=== PATIENT | female | born 1965 | race Hispanic/Latino ===

== ENCOUNTER 2017-09-26 11:39 | Day surgery (SDC) | payer BC ==
[2017-09-20 13:41] VITALS: BMI 42.9
[2017-09-26] MEDS ORDERED: Propofol 10 mg/ml Inj (20 ML) ONE ×3 (14:16→14:59)
[2017-09-26] MEDS ORDERED: Midazolam 2 MG/2 ML VIAL ONE (14:58)
[2017-09-26] MEDS ORDERED: Sodium Chloride 0.9% 1,000 ML IV SCH (15:45)
[2017-09-26 16:44] VITALS: RESP 18; TEMP 97.8
[2017-09-26 16:59] VITALS: PULSE 63
[2017-09-26 18:12] VITALS: BP 137/88; O2SAT 98
== END 2017-09-26 18:00 | disposition home or self-care (01) ==
LOC: ENDO 11:39
PROVIDERS: ATTEND Internal Medicine Gastroenterology
DX: D12.3 Benign neoplasm of transverse colon (principal); K64.8 Other hemorrhoids; Z80.0 Family history of malignant neoplasm of digestive organs; Z87.891 Personal history of nicotine dependence
CPT/HCPCS: 45381; 45385; 88305; J2001; J2250; J2704; J3010; J7040 ×2

== ENCOUNTER 2018-02-26 18:47 | Emergency (ER) | payer BC ==
[2018-02-26] MEDS ORDERED: Sodium Chloride 0.9% 1,000 ML IV STA (19:02)
--- NOTE | 2018-02-26 19:05 | ED PDOC ---
Arrival/HPI - General Time Seen by Provider: 02/26/18 18:52 Historian: Patient - History of Present Illness Narrative History of Present Illness (Text): 52 y/o F c no PMHx p/w chest pain x 1 hour. Pain began under R breast radiating across to L side, sharp, severe, associated with NBNB vomiting x 1. Pain resolved after vomiting for 5 minutes, then recurred, now lower midsternal, radiating to L shoulder. Patient denies fever, chills, cough, diaphoresis, dizziness, shortness of breath. Time/Duration: 1 hour Past Medical History - Provider Review Nursing Documentation Reviewed: Yes - Cardiac Hx Pacemaker: No - Neurological Hx Paralysis: No - Hematological/Oncological Hx Blood Transfusions: No Hx Blood Transfusion Reaction: No - Musculoskeletal/Rheumatological Hx Musculoskeletal Disorders: No - Psychiatric Hx Emotional Abuse: No Hx Physical Abuse: No Hx Substance Use: No - Anesthesia Hx Anesthesia Reactions: No Hx Malignant Hyperthermia: No - Suicidal Assessment Feels Threatened In Home Enviroment: No Family/Social History - Physician Review Nursing Documentation Reviewed: Yes Family/Social History: No Known Family HX Hx Alcohol Use: No Hx Substance Use: No Allergies/Home Meds Allergies/Adverse Reactions: Allergies No Known Allergies Allergy (Verified 09/20/17 13:38) Review of Systems - Physician Review All systems were reviewed & negative as marked: Yes - Review of Systems Constitutional: absent: Fevers Respiratory: absent: SOB Physical Exam - Physical Exam Narrative Physical Exam (Text): Gen: NAD Head: NC/AT Eyes: PERRL ENT: MMM Neck: Supple Chest: No tenderness CV: Regular rate Lungs: CTA b/l Abd: Soft, RUQ/epigastric tenderness Back: No CVA tenderness Extremities: No edema or tenderness Skin: No rash Neuro: Alert, no focal deficit Vital Signs Temp Pulse Resp BP Pulse Ox 02/26/18 19:30 98.6 F 79 18 142/84 99 Medical Decision Making ED Course and Treatment: EKG NSR 80 bpm, no ST/T wave changes. CXR no acute disease. HEART score low. Mild transaminitis, US shows gallstones without CBD dilitation or positive chiu's sign or gall bladder wall thickening. Patient discharged home, johnathan f/u with Rosa Elena, instructed to return to ED for worsening pain, fever, vomiting, yellowing skin/eyes. - Lab Interpretations Lab Results: 02/26/18 19:41 02/26/18 19:41 Lab Results 02/26/18 19:41: Sodium 141, Potassium 4.5, Chloride 105, Carbon Dioxide 28, Anion Gap 13, BUN 24 H, Creatinine 1.0, Est GFR ( Amer) > 60, Est GFR ( Non-Af Amer) 58, Random Glucose 101, Calcium 9.2, Total Bilirubin 0.3, AST 100 H , ALT 58 H, Alkaline Phosphatase 93, Total Creatine Kinase 145, Troponin I < 0.01, Total Protein 7.9, Albumin 4.4, Globulin 3.5, Albumin/Globulin Ratio 1.3, Lipase 148 02/26/18 19:41: WBC 6.0, RBC 4.79, Hgb 13.7, Hct 41.4, MCV 86.4, MCH 28.6, MCHC 33.1, RDW 14.0, Plt Count 316, MPV 10.1, Gran % 65.9, Lymph % (Auto) 20.2 L, [place] % (Auto) 6.9 H, Eos % (Auto) 6.7 H, Baso % (Auto) 0.3, Gran # 3.92, Lymph # (Auto) 1.2, [place] # (Auto) 0.4, Eos # (Auto) 0.4, Baso # (Auto) 0.02 - RAD Interpretation Radiology Orders: 02/26/18 19:02 CHEST PORTABLE [RAD] Stat ABDOMEN COMPLETE [US] Stat - Medication Orders Current Medication Orders: Discontinued Medications Sodium Chloride (Sodium Chloride 0.9%) 1,000 mls @ 999 mls/hr IV .Q1H1M STA Stop: 02/26/18 20:02 Last Admin: 02/26/18 19:34 Dose: 999 mls/hr eMAR Start Stop Document 02/26/18 19:34 RD (Rec: 02/26/18 19:34 RD [id number]) Intravenous Solution Start Date 02/26/18 Start Time 19:34 End Date 02/26/18 End time 20:34 Total Infusion Time 60 Ketorolac Tromethamine (Toradol) 30 mg IVP STAT STA Stop: 02/26/18 19:06 Last Admin: 02/26/18 19:34 Dose: 30 mg MAR Pain Assessment Document 02/26/18 19:34 RD (Rec: 02/26/18 19:34 RD [id number]) Pain Reassessment Is this a pain reassessment? No Sleep Is patient sleeping during reassessment? No Presence of Pain Presence of Pain Yes IVP Administration Document 02/26/18 19:34 RD (Rec: 02/26/18 19:34 RD [id number]) Charges for Administration # of IVP Administrations 1 Ondansetron HCl (Zofran Inj) 8 mg IVP STAT STA Stop: 02/26/18 19:03 Last Admin: 02/26/18 19:30 Dose: 8 mg IVP Administration Document 02/26/18 19:30 RD (Rec: 02/26/18 19:34 RD [id number]) Charges for Administration # of IVP Administrations 1 Ondansetron HCl (Zofran Odt) 4 mg PO STAT STA Stop: 02/26/18 21:29 Last Admin: 02/26/18 21:34 Dose: 4 mg - Scribe Statement The provider has reviewed the documentation as recorded by the Scribe (Ernestina Ludwig) Provider Attestation: All medical record entries made by the Scribe were at my direction and personally dictated by me. I have reviewed the chart and agree that the record accurately reflects my personal performance of the history, physical exam, medical decision making, and the department course for this patient. I have also personally directed, reviewed, and agree with the discharge instructions and disposition. Disposition/Present on Arrival - Present on Arrival Any Indicators Present on Arrival: No - Disposition Have Diagnosis and Disposition been Completed?: Yes Diagnosis: Cholelithiasis Disposition: HOME/ ROUTINE Disposition Time: 21:18 Patient Plan: Discharge Patient Problems: Current Active Problems Problem Status Onset Cholelithiasis Acute Condition: STABLE Discharge Instructions (ExitCare): Gallstones (DC) Prescriptions: Acetaminophen [Tylenol 325mg tab] 2 tab PO Q4H #30 tab Famotidine [Pepcid] 1 tab PO BID #14 tab Ibuprofen [Motrin] 600 mg PO Q6 #25 tab Ondansetron ODT [Zofran ODT] 4 mg PO Q8 #12 odt oxyCODONE/Acetaminophen [Percocet 5/325 mg Tab] 1 tab PO Q6 PRN #14 tab PRN Reason: Pain, Severe (8-10) Referrals: Aleksandra Morley MD [Primary Care Provider] - Follow up with primary James Velasco MD [Medical Doctor] - Follow up with primary Forms: WORK NOTE
[2018-02-26 19:40] VITALS: BMI 38.6
[2018-02-26 19:44] LABS: BASO # 0.02 K/mm3 (0.0-2.0); BASO % 0.3 % (0.0-3.0); EOS # 0.4 (0.0-0.7); EOS % 6.7 % (1.5-5.0); GRAN # 3.92 (1.4-6.5); GRAN % 65.9 % (50.0-68.0); HEMOGLOBIN 13.7 g/dL (12.0-16.0); LYMPH # 1.2 (1.2-3.4); LYMPH % 20.2 % (22.0-35.0); MEAN CELL VOLUME 86.4 fl (80.0-105.0); MEAN CORPUSCULAR HEMOGLOBIN 28.6 pg (25.0-35.0); MEAN CORPUSCULAR HGB CONC 33.1 g/dl (31.0-37.0); MEAN PLATELET VOLUME 10.1 fl (7.0-11.0); MONO # 0.4 (0.1-0.6); MONO % 6.9 % (1.0-6.0); RBC 4.79 10^6/uL (3.5-6.1)
[2018-02-26 19:58] LABS: ALB/GLOB RATIO 1.3 (1.1-1.8); ALBUMIN 4.4 g/dL (3.0-4.8); ALT/SGPT 58 U/L (7-56); AST/SGOT 100 U/L (14-36); BLOOD UREA NITROGEN 24 mg/dL (7-21); CALCIUM 9.2 mg/dL (8.4-10.5); GFR NON-AFRICAN AMERICAN 58; LIPASE 148 U/L (23-300)
[2018-02-26 20:10] LABS: TROPONIN I < 0.01 ng/mL
[2018-02-26 20:11] VITALS: RESP 18; TEMP 98.6
--- NOTE | 2018-02-26 21:26 | US ---
EXAM: US Abdomen Complete CLINICAL HISTORY: 52 years old, female; Pain; Abdominal pain; Flank; Right upper quadrant (ruq); Additional info: Ruq tenderness TECHNIQUE: Real-time ultrasound of the abdomen (complete) with image documentation. COMPARISON: No relevant prior studies available. FINDINGS: Liver: Mild coarse fibrofatty liver. No intrahepatic bile duct dilation. Gallbladder: Echogenic calculi and sludge in the dependent gallbladder. Common bile duct: 0.3 cm, normal. Pancreas: Visualized pancreas appear normal. Pancreatic tail obscured by bowel gas. Kidneys: Right kidney 9.9 x 4.6 x 4.8 cm. Left kidney 10.0 x 5.5 x 5.8 cm. The normal kidney. Spleen: Intact. No splenomegaly. Aorta: No aneurysm where visualized. Inferior vena cava: Unremarkable as visualized. IMPRESSION: 1. Mild coarse fibrofatty liver. 2. Echogenic calculi and sludge in the dependent gallbladder. No gallbladder wall thickening.
[2018-02-26 23:31] VITALS: BP 129/69; PULSE 81; O2SAT 100
--- NOTE | 2018-02-27 09:25 | RAD ---
Date of service: 02/26/2018 HISTORY: chest pain COMPARISON: No prior. FINDINGS: LUNGS: No active pulmonary disease. PLEURA: No significant pleural effusion identified, no pneumothorax apparent. CARDIOVASCULAR: Normal. OSSEOUS STRUCTURES: No significant abnormalities. VISUALIZED UPPER ABDOMEN: Normal. OTHER FINDINGS: None. IMPRESSION: No active disease.
--- NOTE | 2018-02-27 09:50 | CARD ---
APPROVED REPORT Date of service: 02/26/2018 EKG Measurement Heart [id number] <Conclusion> Normal sinus rhythm Normal ECG
== END 2018-02-26 21:33 | disposition home or self-care (01) ==
LOC: ED 18:47
DX: K80.20 Calculus of gallbladder without cholecystitis without obstruction (principal)
CPT/HCPCS: 71045; 76700; 80053; 82550; 83690; 84484; 85025; 93005; 96361; 96374; 96375; 99283; J1885; J2405; J7030

== ENCOUNTER 2018-03-02 06:07 | Day surgery (SDC) | payer BC ==
[2018-03-02 07:09] LABS: INR 1.02; PARTIAL THROMBOPLASTIN TIME 29.7 Seconds (25.1-36.5); PROTHROMBIN TIME 11.7 SECONDS (9.4-12.5)
[2018-03-02] MEDS ORDERED: Midazolam 2 MG/2 ML VIAL ONE (07:28)
[2018-03-02] MEDS ORDERED: Propofol 10 mg/ml Inj (20 ML) ONE (07:28)
[2018-03-02] MEDS ORDERED: Succinylcholine 200 mg/10 ml Inj IV ONE (07:29)
[2018-03-02] MEDS ORDERED: Rocuronium 10 mg/ml (5 ml) ONE (07:29)
[2018-03-02] MEDS ORDERED: Bupivacaine-Epi 0.25%-1:200,000 PF Inj ONE (07:41)
[2018-03-02] MEDS ORDERED: Bupivacaine 0.5% Inj(30mL) ONE (07:43)
[2018-03-02] MEDS ORDERED: Iohexol 240 (50 ml) ONE (07:50)
[2018-03-02] MEDS ORDERED: CeFAZolin 1 gm in NS 100ml IVPB ONE (08:15)
[2018-03-02] MEDS ORDERED: ePHEDrine 50 mg/ml Inj ONE (08:32)
[2018-03-02] MEDS ORDERED: Phenylephrine 10 mg/ml Inj ONE (08:35)
[2018-03-02] MEDS ORDERED: Bupivacaine 0.5% Inj(30mL) IJ ONE (08:45)
[2018-03-02] MEDS ORDERED: Neostigmine Methylsulfate 3mg/3ml Syringe IV ONE (09:46)
[2018-03-02] MEDS ORDERED: HYDROmorphone 0.5 mg/0.5 ml ISec IVP PRN ×2 (10:10→10:32)
--- NOTE | 2018-03-02 10:12 | PCM.SURG1 ---
Surgeon's Initial Post Op Note - Surgeon's Notes Surgeon: Dr. Plunkett Marketing Proposal Coordinator: Dr. Perez PGY4; Dr. Montano PGY2 Type of Anesthesia: General Endo Anesthesia Administered By: michelle Pre-Operative Diagnosis: Symptomatic Cholelithiasis Operative Findings: See operative note Post-Operative Diagnosis: same Operation Performed: Laparoscopic Cholecystectomy with Cholangiogram Specimen/Specimens Removed: Gallbladder Estimated Blood Loss: EBL {In ML}: 20 Blood Products Given: N/A Drains Used: No Drains Post-Op Condition: Good Date of Surgery/Procedure: 03/02/18 Time of Surgery/Procedure: 10:11
[2018-03-02] MEDS ORDERED: Sodium Chloride 0.9% 1,000 ML IV SCH (10:15)
[2018-03-02] MEDS ORDERED: HYDROmorphone 0.5 mg/0.5 ml ISec ONE (11:00)
[2018-03-02 11:32] VITALS: PULSE 71; RESP 20; TEMP 97.1; O2SAT 97
[2018-03-02 12:02] VITALS: BP 112/63
--- NOTE | 2018-03-02 15:06 | RAD ---
Date of service: 03/02/2018 PROCEDURE: Intraoperative cholangiogram HISTORY: R/O OBSTRUCTION COMPARISON: None TECHNIQUE: Standard protocol for this study/examination. FINDINGS: Total fluoroscopic time (continuous mode) utilized during the procedure 27.8 (seconds). Dose report: DLP 6.34 (mGy/m2): IMPRESSION: Less than 1 hr fluoroscopic assistance provided during performance of the procedure.
--- NOTE | 2018-03-02 15:22 | OP ---
PROCEDURE DATE: 03/02/2018 PREOPERATIVE DIAGNOSES: Chronic and acute cholecystitis, cholelithiasis. POSTOPERATIVE DIAGNOSES: Chronic and acute cholecystitis, cholelithiasis. PROCEDURE PERFORMED: Laparoscopic cholecystectomy with intraoperative cholangiogram. SURGEON: Derian Plunkett MD. ANESTHESIA: General endotracheal anesthesia. ANESTHESIOLOGIST: Dr. Nuno. CHANNEL LIP WETTER: Tereza Perez DO and Lida Montano DO. ESTIMATED BLOOD LOSS: Minimal. SPECIMEN: Gallbladder with stones. INDICATIONS: The patient is a 52-year-old female with history of recurrent right upper quadrant abdominal pain with recent attack last week. The patient had elevated liver function test once she was seen in the emergency room; however, those came down on the repeat blood work. The patient had an episode of nausea. No vomiting. The patient was brought in for laparoscopic cholecystectomy. DESCRIPTION OF PROCEDURE: The patient was brought to the operating room, placed on the operating table in a supine position. The patient was connected to the EKG, blood pressure and pulse oximetry monitors. The patient then underwent general endotracheal anesthesia and was prepped and draped in the usual sterile fashion. First, standard time-out procedure took place when everybody in the room were agreed as to the patient's identity, diagnoses and procedure to be performed. Using 2 towel clips, the anterior abdominal wall was elevated and Veress needle was inserted through the small incision superior to the umbilicus. Once pneumoperitoneum was obtained, a 12-mm trocar was inserted through that incision into the abdominal cavity. Careful evaluated of the abdominal cavity revealed the presence of small adhesions of omentum to the gallbladder, distended and thickened-walled gallbladder and no other abnormalities. We then placed a 5-mm trocar through the subxiphoid position and carefully elevated the gallbladder. The adhesions of the omentum were taken down using electrocautery and blunt dissection. The infundibulum was exposed grabbed with a grasper and the cystic duct was carefully skeletonized. The cystic duct lymph node was identified and the cystic duct was from the surrounding tissues completely. The cystic artery which was directly behind it split to anterior and posterior branch was also identified. The cystic duct was now clipped proximally and small incision was made on the side of it. A cholangiocatheter was inserted into the cystic duct and under direct visualization of fluoroscopy, cholangiogram was obtained. The cholangiogram showed prompt flow of dye into the entire biliary tree with prompt emptying into the duodenum without evidence of any obstruction. We then proceeded with removal of cystic duct catheter and clipped the cystic duct distally and transected it. Cystic artery both anteriorly and posteriorly were clipped and transected and the gallbladder was carefully taken off its liver bed using the electrocautery. Once completely detached, the gallbladder was placed into the EndoCatch bag and removed through the periumbilical incision. The right upper quadrant was now copiously irrigated. All the bleeding points were cauterized. There was good hemostasis obtained. Due to the small area of oozing after the bladder was stopped, I then placed one load of Avitene on top of it. Once pneumoperitoneum was released, trocars were removed. The trocars were evaluated prior to pulling them out with no evidence of any bleeding around the trocars. The wounds were now closed using 0 Vicryl for the fascia, 3-0 Vicryl for subcutaneous tissue and 4-0 Monocryl for skin. A sterile Dermabond dressing was applied to the wound. The patient tolerated the procedure well and there were no complications. The patient was awakened and transferred to the recovery room for further observation. Derian Plunkett MD
== END 2018-03-02 17:00 | disposition home or self-care (01) ==
LOC: SDS 06:07
PROVIDERS: ATTEND General Practice
DX: K80.12 Calculus of gallbladder with acute and chronic cholecystitis without obstruction (principal); E66.9 Obesity, unspecified
CPT/HCPCS: 36415; 47563; 74300; 85610; 85730; 88304; J0330; J0690; J1100; J1170; J1885; J2001; J2250; J2370; J2405; J2704; J2710; J3010; J7030; J7120; Q9966